=== PATIENT | female | born 2000 | race Caucasian/White ===

== ENCOUNTER 2020-08-04 13:53 | Emergency (ER) | payer MEDICAID ==
--- NOTE | 2020-08-04 14:47 | XRay Report ---
CHEST 2 VIEWS INDICATION / CLINICAL INFORMATION: chest pain. COMPARISON: None available. FINDINGS: SUPPORT DEVICES: None. HEART / MEDIASTINUM: No significant abnormality. LUNGS / PLEURA: No significant pulmonary or pleural abnormality. No pneumothorax. ADDITIONAL FINDINGS: No significant additional findings. IMPRESSION: 1. No acute findings. Signer Name: Zoran Alvarado MD Signed: 08/04/2020 2:42 PM Workstation Name: [id number]
--- NOTE | 2020-08-04 14:50 | Event Note ---
ED Screening Note Date of service: 08/04/20 Time: 14:16 ED Screening Note: Patient presents with complaints of chest pain and vomiting x 3 days This initial assessment/diagnostic orders/clinical plan/treatment(s) is/are subject to change based on patients health status, clinical progression and re- assessment by fellow clinical providers in the ED. Further treatment and workup at subsequent clinical providers discretion. Patient/guardian urged not to elope from the ED as their condition may be serious if not clinically assessed and managed. Initial orders include: labs cxr ekg
[2020-08-04 15:00] VITALS: BP 128/74
[2020-08-04 15:04] LABS: Basophils % (Auto) 0.2 % (0.0-1.8); Eosinophils # (Auto) 0.1 K/mm3 (0.0-0.4); Eosinophils % (Auto) 1.5 % (0.0-4.3); Hematocrit 39.5 % (30.3-42.9); Hemoglobin 13.6 gm/dl (10.1-14.3); Lymphocytes # (Auto) 2.4 K/mm3 (1.2-5.4); Mean Corpuscular HGB Conc 35 % (30-34); Mean Corpuscular Volume 81 fl (79-97); Monocytes # (Auto) 0.3 K/mm3 (0.0-0.8); Monocytes % (Auto) 5.6 % (0.0-7.3); Platelet Count 228 K/mm3 (140-440); Red Blood Count 4.87 M/mm3 (3.65-5.03); Red Cell Distribution Width 14.4 % (13.2-15.2)
[2020-08-04 15:27] LABS: Alanine Aminotransferase 19 units/L (7-56); Albumin 4.1 g/dL (3.9-5); Blood Urea Nitrogen 6 mg/dL (7-17); Calcium 9.1 mg/dL (8.4-10.2); Hemolysis Index 19
[2020-08-04 15:34] LABS: BUN/Creatinine Ratio 15
--- NOTE | 2020-08-06 17:26 | Electrocardiograph Report ---
[facility] Test Date: 2020-08-04 Test Time: 14:17:48 Pat Name: ANSHUL BENITEZ Department: Room: Gender: F [employer] Professor: TRINO BARRETTB: 2000 Requested By: JASE POTTS Order Number: [id number] Reading MD: Zak Iqbal Measurements Intervals [place] Rate: 77 P: 24 AR: 133 QRS: 61 QRSD: 84 T: 50 QT: 365 QTc: 414 Interpretive Statements Sinus rhythm No previous ECG available for comparison Electronically Signed On 08-06-2020 17:26:22 EDT by Zak Iqbal
== END 2020-08-04 17:30 ==
LOC: ED 13:53
DX: R07.89 Other chest pain (principal); Z53.21 Procedure and treatment not carried out due to patient leaving prior to being seen by health care provider
CPT/HCPCS: 36415; 71046; 80053; 83690; 84484; 85025; 93005